=== PATIENT | female | born 1945 | race Caucasian/White ===

== ENCOUNTER 2022-04-30 13:53 | Outpatient (REF) | payer MEDICARE, SELFPAY ==
[2022-04-30 14:35] LABS: Basophils Absolute Auto 0.06 K/uL (0.00-0.30); Basophils Percent Auto 0.7 % (0.0-3.0); Eosinophils Absolute Auto 0.21 K/uL (0.00-0.50); Eosinophils Percent Auto 2.3 % (0.0-7.0); Hematocrit 42.1 % (33.0-51.0); Hemoglobin* 13.9 gm/dL (12.0-16.0); Immature Granulocytes Abs Auto 0.02 K/uL (0.00-0.30); Immature Granulocytes Pct Auto 0.2 %; Lymphocytes Absolute Auto 2.45 K/uL (0.90-2.90); Lymphocytes Percent Auto 26.7 % (20-44); Mean Corpuscular HGB Conc 33 gm/dL (32-36); Mean Corpuscular Hemoglobin 31 pg (26-34); Mean Corpuscular Volume 94 fL (80-100); Neutrophils Absolute Auto 5.88 K/uL (1.7-7.0); Neutrophils Percent Auto 64.1 % (42.0-72.0); Platelet Count* 370 K/uL (140-440); RDW Coefficient of Variation % 13.2 % (11.5-15.5); Red Blood Count 4.48 m/uL (4.00-5.20); White Blood Count* 9.17 K/uL (4.50-11.00)
[2022-04-30 14:38] LABS: Albumin* 4.4 g/dL (3.3-5.0); Chloride* 107 mmol/L (96-114); Slide Review Reflex No
[2022-04-30 14:39] LABS: Sodium* 140 mmol/L (135-149)
[2022-04-30 14:41] LABS: Alkaline Phosphatase* 106 U/L (40-150); Aspartate Amino Transferase* 23 U/L (12-35); Bilirubin Total* 0.8 mg/dL (0.1-1.5); Blood Urea Nitrogen* 24 mg/dL (7-30); Carbon Dioxide* 25 mmol/L (20-32); Cholesterol* 191 mg/dL (90-199); Creatinine* 1.3 mg/dL (0.5-1.5); Estimated Glomerular Filt Rate 43 ml/min; Glucose* 103 mg/dL (60-115); Total Protein* 7.6 g/dL (6.0-8.3)
[2022-04-30 14:42] LABS: Alanine Aminotransferase* 20 U/L (4-35); Calcium* 9.2 mg/dL (8.4-10.6); HDL Cholesterol* 79 mg/dL (>=50); LDL Cholesterol Calculated 62 mg/dL (<100); Triglycerides* 251 mg/dL (40-149)
[2022-04-30 14:48] LABS: Hemoglobin A1C* 5.44 % (0-5.6)
[2022-04-30 15:17] LABS: Ferritin* 40.6 ng/mL (11.1-264.0)
[2022-04-30 15:45] LABS: Vitamin B12* > 1000 pg/mL (243-894)
[2022-05-01 21:08] LABS: Folate, Serum >22.3 ng/mL (>=5.9)
[2022-05-02 09:39] LABS: Zinc, Serum/Plasma 87.5 ug/dL (60.0-120.0)
[2022-05-03 13:26] LABS: Vitamin A (Retinol) 0.79 mg/L (0.30-1.20)
[2022-05-05 14:09] LABS: Vitamin B1, Whole Blood 155 nmol/L (70-180)
== END 2022-04-30 13:54 | disposition home or self-care (01) ==
LOC: NPINS 13:53
PROVIDERS: PCP Family Medicine
DX: K91.2 Postsurgical malabsorption, not elsewhere classified (principal); Z98.84 Bariatric surgery status; K90.9 Intestinal malabsorption, unspecified; E34.9 Endocrine disorder, unspecified
CPT/HCPCS: 80053; 80061; 82310; 82607; 82728; 82746; 83036; 83970; 84425; 84590; 84630; 85025

== ENCOUNTER 2022-06-11 11:08 | Outpatient (RCR) | payer MEDICARE, SELFPAY ==
--- NOTE | 2022-05-21 11:38 | URNOTE ---
Request received for authorization for?Rait ([id number]). Prior authorization is not required per [facility] injectable list.
[2022-06-11 11:34] VITALS: BP 144/95; PULSE 74; RESP 16; TEMP 37.2; O2SAT 95
== END 2022-12-08 23:59 | disposition home or self-care (01) ==
LOC: CCIC 11:08
PROVIDERS: PCP Family Medicine; Referring Provider Family Medicine; Visit Provider Family Medicine
DX: M81.0 Age-related osteoporosis without current pathological fracture (principal)
CPT/HCPCS: 82310; 82565; 96374; J3489

== ENCOUNTER 2022-08-06 10:57 | Outpatient (CLI) | payer MEDICARE, SELFPAY ==
--- NOTE | 2022-08-06 11:30 | CRLHL7_ITS ---
For Patients: As a result of the Century Cures Act, medical imaging exams and procedure reports are released immediately into your electronic medical record. You may view this report before your referring provider. If you have questions, please contact your health care provider. BILATERAL SCREENING MAMMOGRAM WITH COMPUTER-AIDED DETECTION TECHNIQUE: CC and MLO views were obtained. These mammographic images have been obtained using full-field digital technique. These mammographic images were interpreted with the benefit of computer-aided detection. COMPARISON FILM: 06/04/21, 01/18/20. FINDINGS: The breasts are almost entirely fatty IMPRESSION: There is no radiographic evidence for malignancy. ASSESSMENT: BI-RADS Category 1: Negative RECOMMENDATION: Routine screening mammogram in 1 year. A lay language report of this examination will be provided to the patient. Ramirez Sin M.D. Diagnostic/Nuclear Medicine Radiologist [email or web address] TONE/Dictated by: Ramirez Sin MD @ 08/06/2022 11:59:00 AM (Electronically Signed)
== END 2022-08-06 10:58 | disposition home or self-care (01) ==
PROVIDERS: PCP Family Medicine; Visit Provider Family Medicine
DX: Z12.31 Encounter for screening mammogram for malignant neoplasm of breast (principal)
CPT/HCPCS: 77063; 77067

== ENCOUNTER 2023-05-25 10:20 | Outpatient (CLI) | payer MEDICARE, SELFPAY | END 2023-05-25 10:21 | disposition home or self-care (01) | PROVIDERS: PCP Family Medicine; Visit Provider Family Medicine | DX: I10 Essential (primary) hypertension (principal); M81.0 Age-related osteoporosis without current pathological fracture; Z13.220 Encounter for screening for lipoid disorders | CPT/HCPCS: 80048; 80061; 82306 ==

== ENCOUNTER 2023-09-21 09:20 | Outpatient (CLI) | payer MEDICARE, SELFPAY | END 2023-09-21 09:21 | disposition home or self-care (01) | LOC: NFLDREF 09-22 13:55 | PROVIDERS: PCP Family Medicine; Referring Provider Family Medicine; Visit Provider Family Medicine | DX: M81.0 Age-related osteoporosis without current pathological fracture (principal) | CPT/HCPCS: 80048 ==

== ENCOUNTER 2023-09-28 08:22 | Outpatient (RCR) | payer MEDICARE, SELFPAY ==
--- NOTE | 2023-09-17 11:15 | URNOTE ---
Prior auth is not required for Zoledronic Acid ([id number]) per [facility]'s medical injectable drug authorizaiton list.
[2023-09-28 08:30] VITALS: BP 134/73; PULSE 72; RESP 16; TEMP 36.6; O2SAT 100
== END 2024-03-26 23:59 | disposition home or self-care (01) ==
LOC: CCIC 08:22
PROVIDERS: PCP Family Medicine; Referring Provider Family Medicine; Visit Provider Family Medicine
DX: M81.0 Age-related osteoporosis without current pathological fracture (principal)
CPT/HCPCS: 96374; J3489

== ENCOUNTER 2023-10-05 09:59 | Outpatient (CLI) | payer MEDICARE, SELFPAY ==
--- NOTE | 2023-10-05 10:27 | W.ANESCHARGE ---
Anesthesia Charges Start Date/Time Anesthesia Start Date: 10/05/23 Anesthesia Start Time: 10:49 Stop Date/Time Anesthesia Stop Date: 10/05/23 Anesthesia Stop Time: 11:20 Summary Extremes of Age - Over 70 or under 1: MDA
--- NOTE | 2023-10-05 11:24 | W.ANESCHARGE ---
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
== END 2023-10-05 10:00 | disposition home or self-care (01) ==
LOC: OP CLINIC 09:59
PROVIDERS: PCP Family Medicine; Referring Provider Family Medicine; Visit Provider Surgery
DX: Z12.11 Encounter for screening for malignant neoplasm of colon (principal); K62.1 Rectal polyp; Z86.010 Personal history of colon polyps
CPT/HCPCS: 00811; 45385; 88305; 99100; J2704

== ENCOUNTER 2024-04-25 09:49 | Outpatient (CLI) | payer MEDICARE, SELFPAY ==
[2024-04-25 14:11] LABS: PCR FLU A Negative PCR FLU A (Negative); PCR FLU B Negative PCR FLU B (Negative); PCR RSV Negative PCR RSV (Negative); SARS PCR* Negative SARS-CoV-2 (Negative)
== END 2024-04-25 09:50 | disposition home or self-care (01) ==
LOC: FBOREF 09:50
PROVIDERS: PCP Family Medicine; Visit Provider Family Medicine
DX: J02.9 Acute pharyngitis, unspecified (principal)
CPT/HCPCS: 87631

== ENCOUNTER 2024-05-11 09:33 | Outpatient (CLI) | payer MEDICARE, SELFPAY ==
--- NOTE | 2024-05-11 09:45 | CRLHL7_ITS ---
For Patients: As a result of the Century Cures Act, medical imaging exams and procedure reports are released immediately into your electronic medical record. You may view this report before your referring provider. If you have questions, please contact your health care provider. BILATERAL SCREENING MAMMOGRAM WITH COMPUTER-AIDED DETECTION AND TOMOSYNTHESIS TECHNIQUE: CC and MLO views were obtained. These mammographic images have been obtained using full-field digital technique. These mammographic images were interpreted with the benefit of computer-aided detection. Breast Tomosynthesis was used in this interpretation. COMPARISON FILM: 08/06/22, 06/04/21, 01/18/20. FINDINGS: The breasts are almost entirely fatty. IMPRESSION: There is no radiographic evidence for malignancy. ASSESSMENT: BI-RADS Category 1: Negative RECOMMENDATION: Routine screening mammogram in 1 year. A lay language report of this examination will be provided to the patient. Juan David Mcneil M.D. Diagnostic Radiologist [email or web address] SP/Dictated by: Juan David Mcneil MD @ 05/17/2024 11:28:00 AM (Electronically Signed)
== END 2024-05-11 09:34 | disposition home or self-care (01) ==
LOC: MAMMO 09:33
PROVIDERS: PCP Family Medicine; Visit Provider Family Medicine
DX: Z12.31 Encounter for screening mammogram for malignant neoplasm of breast (principal)
CPT/HCPCS: 77063; 77067

== ENCOUNTER 2024-08-26 10:14 | Outpatient (CLI) | payer MEDICARE, SELFPAY | END 2024-08-26 10:15 | disposition home or self-care (01) | PROVIDERS: PCP Family Medicine; Visit Provider Family Medicine | DX: I10 Essential (primary) hypertension (principal) | CPT/HCPCS: 80048; 85025 ==

== ENCOUNTER 2024-09-21 09:13 | Outpatient (CLI) | payer MEDICARE, SELFPAY | END 2024-09-21 09:14 | disposition home or self-care (01) | LOC: NFLDREF 09-23 15:09 | PROVIDERS: PCP Family Medicine; Referring Provider Family Medicine; Visit Provider Clinical Nurse Specialist | DX: M81.0 Age-related osteoporosis without current pathological fracture (principal) | CPT/HCPCS: 82310; 82565 ==